=== PATIENT | female | born 1965 | race Caucasian/White ===

== ENCOUNTER 2017-02-18 18:46 | Emergency (ER) | payer OTHER ==
[~2017-02-18] VITALS: Ht 152.4 cm; Wt 78.0 kg
[~2017-02-18 18:46] MED LIST: BUDEPRION150 MG OR; DYAZIDE1 CAP PO; GLUCOPHAGE500 MG OR; METO50TA52 PO; NEXIUM40 M1 PO; PERCOCET 5/325M1 TAB OR; TRIAM/HCTZ1 CAP OR; VOLTAREN75 MG PO; WELLBUTRIN150 M2 PO
[2017-02-18] MEDS ORDERED: MICRO-K10 ME1 PO (20:26)
[2017-02-18] MEDS ORDERED: BUMEX1 M1 PO (20:27)
[2017-02-18] MEDS ORDERED: KEFLEX500 MG PO (21:27)
[2017-02-18] MEDS ORDERED: PERCOCET 5/325M1 TAB PO (21:27)
[2017-02-18 22:05] VITALS: BP 116/69
== END 2017-02-18 21:05 | disposition home or self-care (01) | DRG 605 ==
LOC: ED 18:46
PROC: 0HQFXZZ Repair Right Hand Skin, External Approach (ICD-10-PCS; principal; 2017-02-18)
DX: S61.011A Laceration without foreign body of right thumb without damage to nail, initial encounter (principal); I10 Essential (primary) hypertension; E11.9 Type 2 diabetes mellitus without complications; W31.89XA Contact with other specified machinery, initial encounter; Y93.G1 Activity, food preparation and clean up; Y92.009 Unspecified place in unspecified non-institutional (private) residence as the place of occurrence of the external cause

== ENCOUNTER 2019-01-24 18:15 | Emergency (ER) | payer OTHER ==
[~2019-01-24] VITALS: Ht 152.4 cm; Wt 120.0 kg
[~2019-01-24 18:15] MED LIST changes: +BUMEX1 M1 PO; +KEFLEX500 MG PO; +MICRO-K10 ME1 PO; +PERCOCET 5/325M1 TAB PO
[2019-01-24] MEDS ORDERED: ZYLOPRIM100 MG PO (18:28)
[2019-01-24] MEDS ORDERED: PHENTERMINE H37.5 MG PO (18:32)
[2019-01-24 18:48] LABS: URINE BLOOD DIPSTICK NEGATIVE (NEGATIVE); URINE COLOR YELLOW; URINE GLUCOSE - DIPSTICK NEGATIVE (NEGATIVE); URINE KETONE TRACE mg/dL (NEGATIVE); URINE LEUK ESTERASE NEGATIVE (NEGATIVE); URINE NITRITE - DIPSTICK NEGATIVE (Negative); URINE PROTEIN - DIPSTICK TRACE mg/dL (NEG-TRACE); URINE SPECIFIC GRAVITY 1.025; URINE UROBILINOGEN - DIPSTICK 0.2 E.U./dL (0.2)
[2019-01-24 18:51] LABS: URINE BILIRUBIN - DIPSTICK NEGATIVE (NEGATIVE)
[2019-01-24 19:14] LABS: HEMATOCRIT 41.8 % (37.0-47.0); HEMOGLOBIN 14.1 g/dl (12.0-16.0); IMMATURE GRANULOCYTES 0.5 % (0.0-5.0); MEAN CELL VOLUME 99.8 fL CALC (80.0-100.0); MEAN CORPUSCULAR HGB 33.7 pG CALC (26.0-32.0); MEAN CORPUSCULAR HGB CONC 33.7 g/L CALC (32.0-36.0); NEUT# 4.28 thou/uL (2.00-7.15); RED BLOOD COUNT 4.19 mill/uL (4.20-5.60); RED CELL DISTRI WIDTH 12.7 % (11.5-15.5)
[2019-01-24 19:27] LABS: ALBUMIN 4.6 g/dL (3.2-5.0); CREATININE 1.2 mg/dL (0.5-1.0); POTASSIUM 4.4 mmol/l (3.5-5.1)
[2019-01-24 19:35] LABS: BILIRUBIN, TOTAL 0.7 mg/dL (0.0-1.4)
[2019-01-24] MEDS ORDERED: TRAMADOL HCL50 MG PO (20:22)
[2019-01-24 21:16] VITALS: BP 132/65
== END 2019-01-24 21:10 | disposition home or self-care (01) | DRG 563 ==
LOC: ED 18:15
PROVIDERS: Family Medicine
DX: S39.012A Strain of muscle, fascia and tendon of lower back, initial encounter (principal); K76.0 Fatty (change of) liver, not elsewhere classified; I10 Essential (primary) hypertension; X58.XXXA Exposure to other specified factors, initial encounter